=== PATIENT | male | born 1970 | race Hispanic/Latino ===

== ENCOUNTER 2017-11-12 | Emergency (ER) | payer SELFPAY ==
--- NOTE | 2017-11-12 11:27 | ER ---
Nurse's Notes [facility] Name: Mainor Casarez Age: 46 yrs Sex: Male : 1970 Arrival Date: 11/12/2017 Time: 10:00 Bed 11 Private MD: Diagnosis: Encounter for screening, unspecified Presentation: 11/12 10:20 Presenting complaint: Patient states: Pain in left ear since last night. Transition of care: patient was not received from another setting of care. Onset of symptoms was November 11, 2017. Initial Sepsis Screen: Does the patient meet any 2 criteria? No. Patient's initial sepsis screen is negative. Does the patient have a suspected source of infection? No. Patient's initial sepsis screen is negative. Care prior to arrival: None. 10:20 Method Of Arrival: Ambulatory 10:20 Acuity: JENNIFER 4 Triage Assessment: 10:21 General: Appears in no apparent distress. comfortable, Behavior is calm, cooperative, aj appropriate for age. Pain: Complains of pain in left ear Pain currently is 7 out of 10 on a pain scale. EENT: Reports pain in left ear. Neuro: Level of Consciousness is awake, alert, obeys commands, Oriented to person, place, time, situation, Appropriate for age. Respiratory: Airway is patent Respiratory effort is even, unlabored, Respiratory pattern is regular, symmetrical. Derm: Skin is intact, is healthy with good turgor, Skin is pink, warm \T\ dry. normal. Historical: - Allergies: 10:21 No Known Allergies; aj - Home Meds: 10:21 None [Active]; aj - PMHx: 10:21 None; - PSHx: 10:21 None; aj - Immunization history:: Adult Immunizations up to date. - Social history:: Smoking status: Patient/guardian denies using tobacco. Screenin:18 Abuse screen: Denies threats or abuse. Denies injuries from another. Nutritional ss screening: No deficits noted. Tuberculosis screening: Never had TB. Fall Risk None identified. Assessment: 11:18 General: Appears in no apparent distress. comfortable, Behavior is calm, cooperative. ss Neuro: Level of Consciousness is awake, alert. Cardiovascular: Capillary refill < 3 seconds is brisk in bilateral fingers. Respiratory: Respiratory effort is even, unlabored. Derm: Skin is dry, Skin is pink, warm \T\ dry. normal. Musculoskeletal: Circulation, motion, and sensation intact. Range of motion: intact in all extremities. Vital Signs: 10:21 BP 143 / 84; Pulse 82; Resp 16; Temp 98.4; Pulse Ox 99% on R/A; aj ED Course: 10:00 Patient arrived in ED. as 10:20 Triage completed. aj 10:21 Arm band placed on left wrist. Patient placed in waiting room, Patient notified of wait aj time. 11:18 Christiane Knight FNP-C is [facility]. kb 11:18 Dale Jang MD is Attending Physician. kb 11:18 Patient has correct armband on for positive identification. Bed in low position. Call ss light in reach. 11:27 Jessica Sanz, TG is Primary Nurse. ss 11:28 No provider procedures requiring assistance completed. Patient did not have IV access ss during this emergency room visit. Administered Medications: No medications were administered Outcome: 11:27 Discharge ordered by MD. kb 11:28 Medical screen evaluation completed per provider. Patient declined treatment. ss 11:28 Condition: good 11:28 Discharge instructions given to patient, Instructed on follow up and referral plans. 11:28 Patient left the ED. ss Signatures: Christiane Knight FNP-C FNP-Molly Michel, RN RN Liz Thomson Shelby, TG RN ss
--- NOTE | 2017-11-12 11:28 | EDPHYS ---
Physician Documentation [facility] Name: Mainor Casarez Age: 46 yrs Sex: Male : 1970 Arrival Date: 11/12/2017 Time: 10:00 Bed 11 Private MD: ED Physician Dale Jang HPI: 11/12 11:26 This 46 yrs old Male presents to ER via Ambulatory with complaints of Ear Pain.kb 11:26 The patient presents with a foreign body sensation, piece of q-tip. The complaints kb affect the left ear. Onset: The symptoms/episode began/occurred last night. Modifying factors: The symptoms are alleviated by nothing, the symptoms are aggravated by nothing. Associated signs and symptoms: The patient has no apparent associated signs or symptoms. Severity of symptoms: At their worst the symptoms were mild in the emergency department the symptoms are unchanged. The patient has not experienced similar symptoms in the past. The patient has not recently seen a physician. Pt states he cleaned his ears with a q-tip last night and a piece broke off in his ear. Historical: - Allergies: 10: No Known Allergies; aj - Home Meds: 10: None [Active]; aj - PMHx: 10:21 None; aj - PSHx: 10:21 None; aj - Immunization history:: Adult Immunizations up to date. - Social history:: Smoking status: Patient/guardian denies using tobacco. ROS: 11:25 Constitutional: Negative for fever, chills, and weight loss, Cardiovascular: Negative kb for chest pain, palpitations, and edema, Respiratory: Negative for shortness of breath, cough, wheezing, and pleuritic chest pain, Abdomen/GI: Negative for abdominal pain, nausea, vomiting, diarrhea, and constipation, MS/Extremity: Negative for injury and deformity, Skin: Negative for injury, rash, and discoloration, Neuro: Negative for headache, weakness, numbness, tingling, and seizure. 11:25 ENT: Positive for FB left ear. Exam: 11:25 Constitutional: This is a well developed, well nourished patient who is awake, alert, kb and in no acute distress. Head/Face: Normocephalic, atraumatic. ENT: Nares patent. No nasal discharge, no septal abnormalities noted. Tympanic membranes are normal and external auditory canals are clear. Oropharynx with no redness, swelling, or masses, exudates, or evidence of obstruction, uvula midline. Mucous membranes moist. Neck: Trachea midline, no thyromegaly or masses palpated, and no cervical lymphadenopathy. Supple, full range of motion without nuchal rigidity, or vertebral point tenderness. No Meningismus. Chest/axilla: Normal chest wall appearance and motion. Nontender with no deformity. No lesions are appreciated. Cardiovascular: Regular rate and rhythm with a normal S1 and S2. No gallops, murmurs, or rubs. Normal PMI, no JVD. No pulse deficits. Respiratory: Lungs have equal breath sounds bilaterally, clear to auscultation and percussion. No rales, rhonchi or wheezes noted. No increased work of breathing, no retractions or nasal flaring. Abdomen/GI: Soft, non-tender, with normal bowel sounds. No distension or tympany. No guarding or rebound. No evidence of tenderness throughout. Skin: Warm, dry with normal turgor. Normal color with no rashes, no lesions, and no evidence of cellulitis. MS/ Extremity: Pulses equal, no cyanosis. Neurovascular intact. Full, normal range of motion. Neuro: Awake and alert, GCS 15, oriented to person, place, time, and situation. Cranial nerves II-XII grossly intact. Motor strength 5/5 in all extremities. Sensory grossly intact. Cerebellar exam normal. Normal gait. Vital Signs: 10:21 BP 143 / 84; Pulse 82; Resp 16; Temp 98.4; Pulse Ox 99% on R/A; aj MDM: 11:20 Patient medically screened. kb 11:22 Data reviewed: vital signs, nurses notes. Data interpreted: Pulse oximetry: on room air kb is 99 %. Interpretation: normal. Counseling: I had a detailed discussion with the patient and/or guardian regarding: the historical points, exam findings, and any diagnostic results supporting the discharge/admit diagnosis, the need for outpatient follow up, an ENT specialist, to return to the emergency department if symptoms worsen or persist or if there are any questions or concerns that arise at home. Administered Medications: No medications were administered Disposition: 11:22 Person with feared medical complaint in which no diagnosis is made. kb 16:36 Co-signature as Attending Physician, Dale Jang MD. rn Disposition: 11/12/17 11:27 Discharged to Home. Impression: Encounter for screening, unspecified. - Condition is Stable. - Medication Reconciliation Form, Thank You Letter, Antibiotic Education, Prescription Opioid Use form. - Follow up: Emergency Department; When: As needed; Reason: Worsening of condition. Follow up: Private Physician; When: 2 - 3 days; Reason: Recheck today's complaints, Continuance of care, Re-evaluation by your physician. Signatures: Christiane Knight, GARIMA-C GARIMA-Molly Michel RN RN aj Nieto, Roman, MD MD rn Smirch, Shelby, RN RN
== END 2017-11-12 11:28 | disposition home or self-care (01) ==
DX: H92.02 Otalgia, left ear (principal)
CPT/HCPCS: 99281